=== PATIENT | male | born 1975 | race Caucasian/White ===

== ENCOUNTER 2018-02-28 16:18 | Emergency (ER) | payer BC, OTHER ==
[2018-02-28 16:26] VITALS: BP 123/77; PULSE 107; TEMP 98.5; BMI 25.3
--- NOTE | 2018-02-28 16:58 | PDOC ---
History of Present Illness - General Chief Complaint: Pain Stated Complaint: STOMACH PAIN Time Seen by Provider: 02/28/18 16:38 History Source: Patient - History of Present Illness Timing/Duration: reports: intermittent Quality: reports: mild Abdominal Pain Onset Location: reports: generalized abdomen Past History - Past Medical History Allergies/Adverse Reactions: Allergies Allergy/AdvReac Type Severity Reaction Status Date / Time No Known Allergies Allergy Verified 02/28/18 16:26 Home Medications: Ambulatory Orders NK [No Known Home Medication] 02/28/18 COPD: No Psychiatric Problems: Yes (anxiety) - Suicide/Smoking/Psychosocial Hx Smoking History: Never smoked Review of Systems - Review of Systems Constitutional: No: Chills, Fever, Malaise, Weakness Respiratory: No: Shortness of Breath Cardiac (ROS): No: Chest Pain ABD/GI: No: Blood Streaked Bowels, Constipated, Diarrhea, Nausea, Rectal Bleeding, Vomiting, Tarry Stools : No: Dysuria, Flank Pain, Hematuria Musculoskeletal: No: Back Pain Psychiatric: Yes: Anxiety *Physical Exam - Vital Signs Last Vital Signs Temp Pulse Resp BP Pulse Ox 98.5 F 107 H 20 123/77 99 02/28/18 16:22 02/28/18 16:22 02/28/18 16:22 02/28/18 16:22 02/28/18 16:22 - Physical Exam Comments: 02/28/18 18:27 appears mildly anxious in ED General Appearance: Yes: Appropriately Dressed. No: Apparent Distress HEENT: positive: Normal Voice Neck: positive: Supple Respiratory/Chest: positive: Lungs Clear, Normal Breath Sounds. negative: Respiratory Distress Cardiovascular: positive: Regular Rate, S1, S2 Gastrointestinal/Abdominal: positive: Normal Bowel Sounds, Soft. negative: Tender, Distended, Guarding, Rebound Musculoskeletal: negative: CVA Tenderness Integumentary: positive: Dry, Warm Neurologic: positive: Fully Oriented, Alert, Normal Mood/Affect Medical Decision Making - Medical Decision Making 02/28/18 17:01 42 y M, denies any pmhx, p/w diffuse, intermittent abd pain x 2 weeks, unable to describe, 4/10 w/ no exacerbating or alleviating factors. Patient denies any diarrhea, constipation, bright red blood per rectum, melena, or dysuria, hematuria, nausea, vomiting, fever or chills. States he is pain-free at this time. Patient states he has no history of similar pain. Was seen by his PMD several weeks ago for routine visit w/ normal labs. Pt endorses h/o anxiety x several years and states he googled his abd pain which made his anxiety worse. Also reports insomnia. Has never had a psych eval or been on psych meds but states he was given a psych referral by his pmd but has not yet made an appt. Denies HI/SI See exam Abd pain x 2 weeks Asymptomatic at this time w/ benign abd on exam HR of 107 m/l 2/2 anxiety given hx No need for medical intervention at this time -dc to return as needed -to f/u with psych referral from PMD *DC/Admit/Observation/Transfer Diagnosis at time of Disposition: Anxiety Abdominal pain Qualifiers: Abdominal location: generalized Qualified Code(s): R10.84 - Generalized abdominal pain - Discharge Dispostion Disposition: HOME Condition at time of disposition: Good - Referrals Referrals: Polly Raymond MD [Staff Physician] - - Patient Instructions Printed Discharge Instructions: Anxiety Disorders Additional Instructions: Your exam was normal in the ED. There was no signs of any serious condition at this time. If symptoms persist, worsen and/or you develop any other symptoms, return to ER Otherwise, continue to follow-up with your primary care physician. Please call the number on the back of your insurance card to get a list of psychiatrists who accepts your insurance, for further evaluation and management of your anxiety and insomnia - Post Discharge Activity
== END 2018-02-28 17:29 | disposition home or self-care (01) ==
LOC: JERFT 16:18
DX: F41.9 Anxiety disorder, unspecified (principal); R10.84 Generalized abdominal pain
CPT/HCPCS: 99281-25